=== PATIENT | male | born 1955 | race Caucasian/White ===

== ENCOUNTER 2024-05-12 21:04 | Emergency (ER) | payer MEDICARE, BC ==
[~2024-05-12] VITALS: Ht 170.2 cm; Wt 74.8 kg
[2024-05-12] MEDS ORDERED: HYDROCODONE/APAP 5/325MG TABLET ONE (22:20)
[2024-05-12] MEDS: HYDROCODONE/APAP 5/325MG TABLET PO ONE (22:21)
[2024-05-12] MEDS ORDERED: POLY119P PO (23:57)
[2024-05-13 00:11] VITALS: BP 141/84; TEMP 97.6; O2SAT 100
== END 2024-05-13 00:15 | disposition home or self-care (01) ==
LOC: ER 21:07
DX: M54.59 Other low back pain (principal); K59.00 Constipation, unspecified; F17.200 Nicotine dependence, unspecified, uncomplicated; M53.3 Sacrococcygeal disorders, not elsewhere classified; F32.A Depression, unspecified; F39 Unspecified mood [affective] disorder; Z60.2 Problems related to living alone
CPT/HCPCS: 72131-TC